=== PATIENT | male | born 1990 | race Caucasian/White ===

== ENCOUNTER 2021-05-09 09:55 | Emergency (ER) | payer SELFPAY ==
[2021-05-09 10:08] VITALS: BP 134/76; PULSE 93; RESP 16; TEMP 36.1; O2SAT 99
--- NOTE | 2021-05-09 10:22 | ED.GENADULT ---
HPI - General Adult General Chief complaint: Unspecified Stated complaint: not feeling well Time Seen by Provider: 05/09/21 10:22 Source: patient Mode of arrival: ambulatory Limitations: no limitations History of Present Illness HPI narrative: 31-year-old male presents with complaint that he was at work and suddenly felt tingling to his lips, lightheaded, nauseated. States that he ate his peanut butter and jelly sandwich and is now feeling better. Had not eaten breakfast prior to symptoms starting. Also has history of anxiety. coworker told him he should have his blood sugar checked. Also reports hx of anxiety and may have been having panic attack but nothing triggered one. Is taking is zoloft daily. reports that he just wants to be cleared to go back to work. All systems reviewed and negative except as noted above. Related Data Home Medications Medication Instructions Recorded Confirmed lansoprazole 30 mg PO DAILY 05/09/21 05/09/21 levocetirizine 5 mg PO DAILY 05/09/21 05/09/21 sertraline [Zoloft] 50 mg PO DAILY 05/09/21 05/09/21 Allergies Allergy/AdvReac Type Severity Reaction Status Date / Time Penicillins Allergy Rash Verified 05/09/21 10:34 Review of Systems Review of Systems: CONSTITUTIONAL: Denies fever, chills, or sweats. EYES: Denies visual changes, redness, or discharge. ENT: Denies rhinorrhea, congestion, sore throat, or otalgia. CARDIOVASCULAR: Denies chest pain, palpitations, or edema. RESPIRATORY: Denies cough or dyspnea. GASTROINTESTINAL: Denies abdominal pain. Reports nausea. Denies vomiting, or diarrhea. GENITOURINARY: Denies dysuria or hematuria. SKIN: Denies rash or itching. MUSCULOSKELETAL: Denies back pain, joint pain, or myalgia. NEUROLOGIC: Denies headache, numbness, or weakness. Reports feeling lightheaded and lips tingling. PSYCHIATRIC: Denies anxiety or depression. All other systems reviewed are negative, except as documented in HPI. PMFSH Comments At time of signature, agree with nursing past medical, surgical, social and family history. There is no relevant family history pertinent to the presenting complaint. Exam Narrative: GENERAL: This is a well-nourished, well-developed patient, in no apparent distress. HEAD: normocephalic, atraumatic. EYES: PERRL. Sclera clear/white. Vision is grossly intact. EARS: External ears normal NOSE: External nose normal THROAT: Mucous membranes moist NECK: Neck supple, non-tender without lymphadenopathy, masses or thyromegaly. CARDIOVASCULAR: Regular rate and rhythm without murmurs, gallops, or rubs. RESPIRATORY: Clear to auscultation. Breath sounds equal bilaterally. No wheezes, rales, or rhonchi. GASTROINTESTINAL: Abdomen soft, non-tender, nondistended. Bowel sounds are active. No hepato-splenomegaly, or palpable masses. No guarding. SKIN: warm, Dry, intact with no suspicious lesions or rash, good texture and turgor. NEURO: awake, alert, and oriented to person, place and time. There were no obvious focal neurologic abnormalities. EXTREMITIES: Normal range of motion all extremities. Course Course Level of Care: Express Care Visit Vital Signs Vital signs: Vital Signs Temperature 36.1 C L 05/09/21 10:08 Pulse Rate 93 05/09/21 10:08 Respiratory Rate 16 05/09/21 10:08 Blood Pressure 134/76 05/09/21 10:08 Pulse Oximetry 99 05/09/21 10:08 Temperature 36.1 C L 05/09/21 10:08 Pulse Rate 93 05/09/21 10:08 Respiratory Rate 16 05/09/21 10:08 Blood Pressure 134/76 05/09/21 10:08 Pulse Oximetry 99 05/09/21 10:08 Reviewed Medical Decision Making MDM Narrative Medical decision making narrative: Patient is aware of diagnosis, understands and agrees to treatment plan. Anticipatory guidance given. Patient agrees to follow-up as directed and is aware of reasons to seek care at the emergency department. Portions of this record may have been created with voice recognition software Blood sugar normal. symptoms resolv
[2021-05-09 10:31] LABS: Glucose Point of Care 113 mg/dl (65-105)
== END 2021-05-09 10:40 | disposition home or self-care (01) ==
PROVIDERS: Emergency Provider Nurse Practitioner Family
DX: F41.9 Anxiety disorder, unspecified (principal); K21.9 Gastro-esophageal reflux disease without esophagitis; F32.A Depression, unspecified
CPT/HCPCS: 82948; 99202; G0463

== ENCOUNTER 2024-05-23 16:34 | Emergency (ER) | payer BC, SELFPAY ==
[2024-05-23 16:48] VITALS: BP 152/91; PULSE 96; RESP 20; TEMP 36.9; O2SAT 97
--- NOTE | 2024-05-23 16:58 | ED.URI ---
HPI - URI/Sore Throat General Chief Complaint: Upper Respiratory Infection Stated Complaint: cough,sore throat,chest hurts when coughs Time Seen by Provider: 05/23/24 17:00 Source: patient Mode of arrival: ambulatory Limitations: no limitations History of Present Illness HPI Narrative: Moise is a 34-year-old male patient presenting to the clinic today with complaints cough, sore throat, chest discomfort with coughing times 3-4 days. He denies any known fever or chills. Denies any shortness of breath. Is coughing up clear phlegm. Related Data Home Medications ?Medication ?Instructions ?Recorded ?Confirmed ?Last Taken ?Type lansoprazole 30 mg capsule,delayed 30 mg PO DAILY 05/09/21 05/09/21 Unknown History release levocetirizine 5 mg tablet 5 mg PO DAILY 05/09/21 05/09/21 Unknown History sertraline 50 mg tablet (Zoloft) 50 mg PO DAILY 05/09/21 05/09/21 Unknown History Allergies Allergy/AdvReac Type Severity Reaction Status Date / Time albuterol (From Ventolin HFA) Allergy OTHER Verified 05/23/24 16:56 Penicillins Allergy Rash Verified 05/23/24 16:56 Review of Systems Review of Systems: Pertinent positives per HPI. Patient denies any fever, chills, rash, headache, visual changes, dizziness, chest pain, palpitations, nausea, vomiting, diarrhea, constipation, abdominal pain, or any urinary issues. PMFSH Comments At the time of my signature, I reviewed and agree with the nursing past medical, surgical, social, and family history. There is no relevant family history pertinent to the patient complaint. Exam Narrative: General: Well-developed, well nourished, in no apparent distress Head: Normocephalic, atraumatic Eyes: Pupils equally round and reactive to light bilaterally, EOM intact, sclera and conjunctive clear, no discharge, lids normal Ears: TMs intact and clear, ear canals clear, no drainage, grossly hearing normal. Nose: Nares patent, no discharge, no inflammation, no sinus tenderness. Mouth: Oral pharynx without lesions or masses, good dentition, MMM. Neck: Supple, trachea midline, no enlargement of anterior or posterior cervical nodes, no thyroid masses or goiter palpable. Cardio: Regular rate and rhythm, s1 and s2 normal, no murmur appreciated. Resp: Clear to auscultation bilaterally, no rhonchi, rales, wheezing or rubs Course Course Emergency Course: Portions of this record may have been created with voice recognition software. Level of Care: Express Care Visit Vital Signs Vital signs: Vital Signs Temperature 36.9 C 05/23/24 16:48 Pulse Rate 96 05/23/24 16:48 Respiratory Rate 20 05/23/24 16:48 Blood Pressure 152/91 H 05/23/24 16:48 Pulse Oximetry 97 05/23/24 16:48 Oxygen Delivery Room Air 05/23/24 16:48 Temperature 36.9 C 05/23/24 16:48 Pulse Rate 96 05/23/24 16:48 Respiratory Rate 20 05/23/24 16:48 Blood Pressure 152/91 H 05/23/24 16:48 Pulse Oximetry 97 05/23/24 16:48 Oxygen Delivery Room Air 05/23/24 16:48 Vital signs reviewed MDM - URI/Sore Throat MDM Narrative Medical decision making narrative: At the time of visit patient is resting comfortably on the exam table. Patient appears to be nontoxic. Labs: Strep test was negative in the clinic today. We will send strep for culture. Plan: I suspect patient has URI with cough and congestion/pharyngitis. Will send in prescription for prednisone. Supportive measures were discussed with the patient and they voiced understanding discharge instructions and agrees to treatment plan. Return precautions reviewed Differential Diagnosis Differential diagnosis: Likely upper respiratory infection, otitis media, sinusitis, viral infection, bronchitis, influenza, pharyngitis and other Discharge Plan Discharge Clinical Impression: Upper respiratory infection Qualifiers: URI type: unspecified URI Qualified Code(s): J06.9 - Acute upper respiratory infection, unspecified Pharyngitis Qualifiers: Pharyngitis/tonsillitis etiology: unspecified etiology Qualified Code(s): J02.9 - Acute pharyngitis, unspecified Patient Disposition: Home Condition: Stable Instructions: Antibiotic Form, Pharyngitis (ED), Cold Symptoms (ED) Additional Instructions: Take prescription medications only as prescribed-prednisone Cool-mist humidifier at the bedside May take DayQuil/NyQuil for cold/flu symptoms May take Mucinex as needed for the cough Increase fluids and stay well hydrated Tylenol/motrin for pain/fever Flonase and OTC antihistamines as directed Vicks vapor rub to open sinuses Sinus rinses for congestion Cepacol spray, cough drops, throat lozenges, warm tea with honey/lemon, gargle salt water to soothe throat BRAT diet for diarrhea Clear liquids x 24 hours then advance as tolerated for nausea/vomiting Go to the ED if you develop a worsening in your condition- high fever not controlled by Tylenol or Motrin, dehydration, weakness, lethargy, shortness of breath, or chest pain. Follow up with your PCP in 3-5 days if symptoms persist. Patient Language: Yoruba Prescriptions: No Action lansoprazole 30 mg Capsule,Delayed Release(Dr/Ec) 30 mg PO DAILY sertraline [Zoloft] 50 mg Tablet 50 mg PO DAILY levocetirizine 5 mg Tablet 5 mg PO DAILY Follow-up/Referrals: PHYSICIAN NOT ON STAFF,NONSTAFF [Primary Care Provider] - Time of Disposition: 17:09 Quality NIHSS Nursing Documentation ED NIHSS nursing documentation: reviewed/agree
[2024-05-23 17:06] LABS: EDSTREPNEGPOS1 Negative (Negative)
== END 2024-05-23 17:20 | disposition home or self-care (01) ==
PROVIDERS: Emergency Provider Nurse Practitioner Family
DX: J06.9 Acute upper respiratory infection, unspecified (principal); J02.9 Acute pharyngitis, unspecified; K21.9 Gastro-esophageal reflux disease without esophagitis; F41.9 Anxiety disorder, unspecified; F32.A Depression, unspecified
CPT/HCPCS: 87081; 87880; 99213; G0463